=== PATIENT | female | born 1940 | race Caucasian/White ===

== ENCOUNTER 2021-08-17 10:32 | Emergency (ER) | payer MEDICARE ==
[~2021-08-17] VITALS: Ht 170.2 cm; Wt 63.5 kg
[~2021-08-17 10:32] MED LIST: ACID REFLUX MED; AMOCLA875 PO; ESCI10 PO; HYDACE10B PO; HYDACE5 PO; METF500 PO; OMEP40CA12 PO; SULTRIDS PO
[2021-08-17] MEDS ORDERED: HYDR1TAB94 PO ×2 (12:54→13:43)
[2021-08-17] MEDS ORDERED: IBUP600 PO (12:54)
[2021-08-17] MEDS ORDERED: Norco 5-325 Ta1 EACH PO (15:09)
== END 2021-08-17 13:47 | disposition home or self-care (01) ==
LOC: ER 10:32
DX: S20.219A Contusion of unspecified front wall of thorax, initial encounter (principal); E11.9 Type 2 diabetes mellitus without complications; Z87.891 Personal history of nicotine dependence; Z88.5 Allergy status to narcotic agent; Z79.84 Long term (current) use of oral hypoglycemic drugs; Z79.899 Other long term (current) drug therapy; W01.190A Fall on same level from slipping, tripping and stumbling with subsequent striking against furniture, initial encounter
CPT/HCPCS: 70450; 71120

== ENCOUNTER 2024-01-08 18:00 | Observation (INO) | payer MEDICARE ==
[~2024-01-08] VITALS: Ht 170.2 cm; Wt 61.0 kg
[~2024-01-08 18:00] MED LIST changes: +HYDR1TAB94 PO; +IBUP600 PO; +Norco 5-325 Ta1 EACH PO
[2024-01-08 19:10] LABS: Source, Urine Clean Catch
[2024-01-08 19:21] LABS: Appearance, Urine Clear (Clear); Bilirubin, Urine Neg (Neg); Blood, Urine 3+ (Neg); Glucose Qualitative, Urine Neg (Neg); Ketones, Urine Neg (Neg); Leukocyte Esterase, Urine 2+ (Neg); Nitrite, Urine Neg (Neg); Protein, Urine 2+ (Neg); Urobilinogen, Urine NORM (Normal)
[2024-01-08 19:32] LABS: Color, Urine Pale Yellow (P-Yellow)
[2024-01-08 19:33] LABS: Bacteria Many /hpf; Squamous Epithelial Cells Few /hpf (Few); Transitional Epithelial Cells Rare /hpf (0-Rare)
[2024-01-08] MEDS ORDERED: NS 1,000 ML IV SCH (23:40)
[2024-01-08] MEDS ORDERED: CefTRIAXone Sodium 1,000 MG in NS 100 ML IV ONE (23:45)
[2024-01-09] MEDS ORDERED: Acetaminophen 325 MG TABLET PO PRN (00:40)
[2024-01-09] MEDS ORDERED: NS 1,000 ML IV SCH (00:45)
[2024-01-09] MEDS ORDERED: Ondansetron HCl 2 MG / ML 2ML Vial IV PRN (00:45)
[2024-01-09] MEDS ORDERED: FLU VACC TS2024-25(6MOS UP)/PF 45 MCG/0.5 ML SYRINGE IM ONE (00:45)
[2024-01-09 01:03] LABS: BASOPHILS ABSOLUTE AUTO 0.05 K/mm3 (0.00-0.23); BASOPHILS PERCENT AUTO 0 % (0-2); EOSINOPHILS PERCENT AUTO 0 % (0-6); Hematocrit 32.1 % (33.0-51.0); IMMATURE GRAN ABSOLUTE AUTO 0.43 K/mm3 (0.00-0.10); IMMATURE GRAN PERCENT AUTO 2 % (0-1); LYMPHOCYTES ABSOLUTE AUTO 0.89 K/mm3 (0.84-5.20); LYMPHOCYTES PERCENT AUTO 4 % (21-46); MONOCYTES ABSOLUTE AUTO 1.21 K/mm3 (0.16-1.47); MONOCYTES PERCENT AUTO 5 % (4-13); Mean Corpuscular HGB 32.1 pg (26.0-34.0); Mean Corpuscular HGB Conc 34.3 g/dL (31.5-36.5); Mean Corpuscular Volume 94 fL (80-100); Mean Platelet Volume 9.9 fL (9.1-12.4); NEUTROPHILS ABSOLUTE AUTO 19.78 K/mm3 (1.96-9.15); NEUTROPHILS PERCENT AUTO 89 % (41-73); Platelet Count 435 K/mm3 (150-400); RDW Coefficient Variation 14.6 % (11.7-14.2); RDW Standard Deviation 50.7 fL (35.1-46.3); Red Blood Cell Count 3.43 M/mm3 (3.80-5.20); White Blood Cell Count 22.36 K/mm3 (4.00-11.30)
[2024-01-09 01:20] LABS: Albumin, Blood 2.6 g/dL (3.4-5.0); Albumin/Globulin Ratio 0.6 (0.8-1.8); Bilirubin, Total 0.5 mg/dL (0.1-1.0); Bun/Creatinine Ratio 35.6 (12.0-20.0); Calcium, Blood 8.4 mg/dL (8.5-10.1); Creatinine, Blood 2.08 mg/dL (0.40-1.00); Globulin, Blood 4.1 g/dL (2.2-4.0); Potassium, Blood 4.2 mmol/L (3.5-5.5); Total Protein, Blood 6.7 g/dL (6.4-8.2)
[2024-01-09 01:40] LABS: Influenza A, PCR NEGATIVE (NEGATIVE); Influenza B, PCR NEGATIVE (NEGATIVE); Resp Syncytial Virus, PCR NEGATIVE (NEGATIVE); SARS-Cov-2 (COVID-19) PCR, MMC NEGATIVE (NEGATIVE)
[2024-01-09 08:40] VITALS: BP 129/55
[2024-01-09] MEDS ORDERED: Heparin Sodium 5000 Units/ML 1ML MDV SC SCH (09:00)
[2024-01-09] MEDS ORDERED: NS 1,000 ML IV ONE (09:14)
[2024-01-09 12:26] LABS: Bun/Creatinine Ratio 31.1 (12.0-20.0); Calcium, Blood 7.8 mg/dL (8.5-10.1); Creatinine, Blood 1.96 mg/dL (0.40-1.00); Potassium, Blood 4.2 mmol/L (3.5-5.5)
--- NOTE | 2024-01-09 14:35 | NUR ---
REPORT TO J LUIS BOLANOS.
--- NOTE | 2024-01-09 15:31 | NUR ---
CARE ASSUMED OF PT AT APPROXIMATELY 1500. PT ALERT/ORIENTED SITTING IN A CHAIR. PAIN MANAGED.
[2024-01-09 16:11] VITALS: BP 131/65
[2024-01-09] MEDS ORDERED: GlipiZIDE 5 MG Tab PO SCH (16:30)
--- NOTE | 2024-01-09 18:13 | NUR ---
SHIFT SUMMARY PT IS SLIGHTLY CONFUSED/FORGETFUL THIS EVENING. PT'S DAUGHTER REPORTS THAT PT IS FORGETFUL AT TIMES. BED ALARM TURNED ON. NO OTHER CHANGES TO REPORT AT THIS TIME.
[2024-01-09 19:01] VITALS: BP 135/57
[2024-01-09] MEDS ORDERED: CefTRIAXone Sodium 1,000 MG in NS 100 ML IV SCH (21:00)
--- NOTE | 2024-01-10 04:07 | NUR ---
SHIFT SUMMARY NO ACUTE CHANGES T/O NIGHT. PT APPEARS TO HAVE RESTED WELL. A/OX4 BUT EASILY CONFUSED. ABLE TO MAKE NEEDS KNOWN. CALLED FOR BSC TWICE DURING NIGHT WITH ONE INCONT. VOID, ATTENDS IN PLACE AND CHANGED PRN. SMEAR NOTED. NICHOLAS PO INTAKE, DENIES N/V. ENCOURAGED PO INTAKE. ABX INFUSED PER ORDERS. IV SL. NSR AT 70 BPM PER QUARTER SEAMER. CONT BIOX IN PLACE, SP02 ABOVE 93%. PT CURRENTLY RESTING IN BED WITH CALL LIGHT IN REACH. BED ALARM ON AND BED RAILS UP. PLAN TO GIVE REPORT TO JESUS BOLANOS.
[2024-01-10 04:29] VITALS: BP 141/72
[2024-01-10 04:53] LABS: BASOPHILS ABSOLUTE AUTO 0.02 K/mm3 (0.00-0.23); BASOPHILS PERCENT AUTO 0 % (0-2); EOSINOPHILS ABSOLUTE AUTO 0.03 K/mm3 (0.00-0.68); EOSINOPHILS PERCENT AUTO 0 % (0-6); Hematocrit 27.7 % (33.0-51.0); Hemoglobin 9.4 g/dL (11.5-16.0); IMMATURE GRAN ABSOLUTE AUTO 0.22 K/mm3 (0.00-0.10); IMMATURE GRAN PERCENT AUTO 1 % (0-1); LYMPHOCYTES ABSOLUTE AUTO 0.96 K/mm3 (0.84-5.20); LYMPHOCYTES PERCENT AUTO 6 % (21-46); MONOCYTES ABSOLUTE AUTO 1.19 K/mm3 (0.16-1.47); MONOCYTES PERCENT AUTO 7 % (4-13); Mean Corpuscular HGB Conc 33.9 g/dL (31.5-36.5); Mean Corpuscular Volume 94 fL (80-100); Mean Platelet Volume 9.9 fL (9.1-12.4); NEUTROPHILS ABSOLUTE AUTO 13.96 K/mm3 (1.96-9.15); NEUTROPHILS PERCENT AUTO 85 % (41-73); Platelet Count 378 K/mm3 (150-400); RDW Coefficient Variation 14.8 % (11.7-14.2); RDW Standard Deviation 51.8 fL (35.1-46.3); Red Blood Cell Count 2.94 M/mm3 (3.80-5.20); White Blood Cell Count 16.38 K/mm3 (4.00-11.30)
[2024-01-10 05:58] LABS: Bun/Creatinine Ratio 29.4 (12.0-20.0); Creatinine, Blood 1.87 mg/dL (0.40-1.00); Free Thyroxine 0.75 ng/dL (0.70-1.60); Potassium, Blood 4.5 mmol/L (3.5-5.5); Uric Acid, Blood 7.6 mg/dL (2.6-6.0)
[2024-01-10 07:17] VITALS: BP 148/63
[2024-01-10] MEDS ORDERED: Lactated Ringer's 1,000 ML IV SCH ×2 (08:45)
[2024-01-10] MEDS ORDERED: Acetaminophen325 M1 PO (13:02)
[2024-01-10] MEDS ORDERED: CEPH500 PO (13:03)
[2024-01-10] MEDS ORDERED: VISBIOME 112.51 EACH PO (13:03)
[2024-01-10] MEDS ORDERED: GLIP5 PO (13:03)
[2024-01-10 13:35] LABS: Bun/Creatinine Ratio 28.3 (12.0-20.0); Calcium, Blood 8.3 mg/dL (8.5-10.1); Creatinine, Blood 1.66 mg/dL (0.40-1.00); Potassium, Blood 4.3 mmol/L (3.5-5.5)
--- NOTE | 2024-01-10 15:58 | NUR ---
DISCHARGE SUMMARY PT SHOWERED AND DRESSING IN HOME CLOTHES, IV ACCESS REMOVED WHILE DISCUSSING DISCHARGE INSTRUCTIONS. NEW MEDS FAXED TO PATIENTS PHARMACY, NO QUESTIONS AT THIS TIME, PT ESCORTED OTU VIA WC TO PRIVATE AUTO TO GO HOME.
== END 2024-01-10 15:03 | disposition home health service (06) ==
LOC: ER 18:00 → ERHOLD 18:01 → SURS 01-09 00:20 → ER 01-09 00:20 → ERHOLD 01-09 00:20 → SURS 01-09 08:20
PROVIDERS: Emergency Medicine; Internal Medicine; ADMIT Internal Medicine
DX: N17.9 Acute kidney failure, unspecified (principal); E11.22 Type 2 diabetes mellitus with diabetic chronic kidney disease; N18.30 Chronic kidney disease, stage 3 unspecified; M25.562 Pain in left knee; M25.561 Pain in right knee; B35.1 Tinea unguium; Z88.5 Allergy status to narcotic agent; R06.02 Shortness of breath; J98.4 Other disorders of lung; R53.82 Chronic fatigue, unspecified; E11.69 Type 2 diabetes mellitus with other specified complication; R31.9 Hematuria, unspecified
CPT/HCPCS: 0241U; 36415; 71046; 73560-LT; 73560-RT; 73660; 76770; 80048; 80053; 81001; 82728; 83036; 83540; 83550; 83605; 83735; 83880; 84439; 84443; 84550; 85025; 87040; 87077; 87086; 87186; 93005; 93010; 96365; 96372; 96376; 97110; 97161; 97530; 99285-25; A9270; G0378; J0696; J1644; J7030; J7120